=== PATIENT | male | born 1980 | race African-American/Black ===

== ENCOUNTER 2022-03-15 22:57 | Emergency (ER) | payer OTHER ==
[2022-03-15 23:02] VITALS: BMI 32.8
[2022-03-15 23:09] VITALS: BP 115/76; PULSE 73; TEMP 98.4
== END 2022-03-16 00:20 | disposition home or self-care (01) ==
LOC: FER 22:57
DX: J70.5 Respiratory conditions due to smoke inhalation (principal)
CPT/HCPCS: 99282-25